=== PATIENT | male | born 1950 | race Caucasian/White ===

== ENCOUNTER 2017-12-20 10:54 | Inpatient (IN) | payer OTHER, MEDICAID ==
[2017-12-20] MEDS ORDERED: FAMOTIDINE 20 MG TAB PO ONE (10:57)
[2017-12-20] MEDS ORDERED: NS 1,000 ML IV ONE (10:57)
[2017-12-20] MEDS ORDERED: diphenhydrAMINE 25 MG CAP PO ONE (10:57)
[2017-12-20] MEDS ORDERED: ASPIRIN EC 325 MG TAB PO ONE (10:57)
[2017-12-20] MEDS ORDERED: DIAZEPAM 5 MG TAB PO ONE (10:57)
--- NOTE | 2017-12-20 11:20 | CPEKG ---
Heart Rate: 61 RR Interval: 984 P-R Interval: 172 QRSD Interval: 90 QT Interval: 404 QTC Interval: 407 P [place]: 43 QRS [place]: 57 T Wave [place]: 56 EKG Severity - ABNORMAL ECG - EKG Impression: SINUS RHYTHM EKG Impression: PROBABLE INFERIOR INFARCT, OLD EKG Impression: ANTEROLATERAL INFARCT, AGE INDETERMINATE Electronically Signed By: Basil So 20-Dec-2017 18:18:45
[2017-12-20 11:37] LABS: PLATELET COUNT 159 10^3/uL (150-400)
[2017-12-20] MEDS ORDERED: LIDOCAINE 1% 300 MG/30 ML SDV ONE (11:37)
[2017-12-20] MEDS ORDERED: fentaNYL 100 MCG/2 ML INJ ONE (11:37)
[2017-12-20] MEDS ORDERED: MIDAZOLAM 2 MG/2 ML VIAL ONE (11:38)
[2017-12-20] MEDS ORDERED: HEPARIN 10,000 UNIT/10 ML MDV (1,000 UNIT/ML) ONE (11:38)
[2017-12-20] MEDS ORDERED: IOPAMIDOL (ISOVUE-370) 150 ML BTL IV ONE (11:38)
[2017-12-20] MEDS ORDERED: VERAPAMIL 5 MG/2 ML VIAL ONE (11:38)
[2017-12-20 11:46] LABS: INR 1.05 (0.83-1.16); PROTIME(PATIENT) 13.9 SEC (12.0-15.0)
--- NOTE | 2017-12-20 12:00 | PDPROPOC ---
Sedation Plan of Care Sedation Plan of Care: vital signs stable, mental status noted, patient educated of risks, benefits, alternatives, patient can tolerate sedation ASA Classification: ASA 2 Planned drugs: fentanyl, midazolam Mallampati Score: Class 2 Mallampati Reference Image: Patient passed 3-3-2 rule?: Yes
--- NOTE | 2017-12-20 12:00 | PDHPUP ---
History & Physical Update H&P update statement: This history and physical update is based on an assessment of the patient which was completed after admission or registration (within 24 hours), but prior to the surgery/procedure. H&P update: H&P reviewed & patient examined, no change in patient's condition since H&P completed
[2017-12-20] MEDS ORDERED: ONDANSETRON 4 MG/2 ML VIAL ONE (12:21)
--- NOTE | 2017-12-20 13:01 | PDDXCAT ---
Diagnostic Cath Note - . Date: 12/20/17 Vp Training: Paolo Indication: CCC Class III and IV angina on medical treatment - Procedure Access: right wrist Procedure: left heart catheterization, coronary angiography, left ventriculogram - Materials Left Heart Cath size: 5F Left Heart Cath materials: other ([employer] and Pigtail) - Findings-Left Heart Catheterization LM: Mild irregularity. LAD: Fluoroscopy reveals the presence of a previously stented segment in the mid -LAD. Angiography demonstrates mild irregularities of the proximal LAD. The first diagonal branch has 50-60% ostial disease. The LAD is occluded within the stented segment. The apical portion of the LAD fills by [id number] collaterals. LCX: Fluoroscopy reveals the presence of a previously stented segment in the mid -circumflex. Angiography demonstrates proximal circumflex disease up to 60%. The stented segment is patent with 20-30% restenosis. The principal obtuse marginal branch has mild irregularities. RCA: Moderate to severe diffuse disease from the proximal RCA to the crux. At the junction of the mid and distal thirds of the RCA there is a focal stenosis greater than 90%. EDP: 24 mmHg LVEF: 30% Wall motion: Anterior and apical akinesis. Complications: None Estimated blood loss: <50ml Closure method: TR Band Assessment: 1) Ischemic cardiomyopathy with severely reduced left ventricular systolic function. 2) Multivessel CAD as described above. Plan: CT surgery consult for CABG.
[2017-12-20] MEDS ORDERED: ACETAMINOPHEN 325 MG TAB PO PRN (13:14)
[2017-12-20] MEDS ORDERED: ATROPINE SULFATE 1 MG/10 ML SYR IVP PRN (13:14)
[2017-12-20] MEDS ORDERED: NITROGLYCERIN 0.4 MG BTL SL PRN (13:14)
[2017-12-20] MEDS ORDERED: ONDANSETRON 4 MG/2 ML VIAL IVP PRN (13:14)
[2017-12-20] MEDS ORDERED: NS 1,000 ML IV SCH (13:15)
[2017-12-20] MEDS ORDERED: Ramelteon [Rozerem] 8 MG PO PRN (13:24)
[2017-12-20] MEDS: CARVEDILOL 6.25 MG TAB PO SCH (17:50)
[2017-12-20] MEDS: ATORVASTATIN CALCIUM 10 MG TAB PO SCH (20:52)
[2017-12-20] MEDS: ASPIRIN 325 MG TAB PO SCH (20:52)
[2017-12-20] MEDS: CHOLECALCIFEROL VIT D3 2,000 UNITS TAB/CAP PO SCH (20:52)
[2017-12-20] MEDS: LITHIUM CARBONATE 300 MG TAB PO SCH (20:58)
[2017-12-20] MEDS: MIRTAZAPINE 30 MG TAB PO SCH (20:58)
[2017-12-21] MEDS ORDERED: HEPARIN 10,000 UNIT/10 ML MDV (1,000 UNIT/ML) IVP ONE (07:54)
[2017-12-21] MEDS ORDERED: HEPARIN 10,000 UNIT/10 ML MDV (1,000 UNIT/ML) IVP PRN (07:54)
[2017-12-21] MEDS ORDERED: MANNITOL 25% 12.5 GM/50 ML VIAL IVP ONE (07:58)
[2017-12-21] MEDS ORDERED: VERAPAMIL 5 MG, NITROGLYCERIN 2.5 MG, HEPARIN 500 UNIT, SODIUM BICARBONATE 0.2 MEQ in L... MISC ONE (07:58)
[2017-12-21] MEDS ORDERED: SODIUM BICARBONATE 20 MEQ, LIDOCAINE 1% 10 ML in NORMOSOL-R 1,000 ML MISC ONE (07:58)
[2017-12-21] MEDS ORDERED: AMINOCAPROIC ACID 5 GM/20 ML VIAL IV ONE (07:58)
[2017-12-21] MEDS ORDERED: NOREPINEPHRINE BITARTRATE 16 MG in NS 250 ML IV ONE (07:58)
[2017-12-21] MEDS ORDERED: PHENYLEPHRINE HCL 50 MG in NS 250 ML IV ONE (07:58)
[2017-12-21] MEDS ORDERED: INSULIN REGULAR HUMAN 100 UNIT in NS 100 ML IV ONE (07:58)
[2017-12-21] MEDS ORDERED: MUPIROCIN 2% 22 GM OINT NS ONE (07:58)
[2017-12-21] MEDS ORDERED: CITRATE DEXTROSE SOLN 500 ML BAG MISC ONE (07:58)
[2017-12-21] MEDS ORDERED: ceFAZolin 2 GM/SWFI 2 GM/20 ML SYR IVP ONE (07:58)
[2017-12-21] MEDS ORDERED: niCARdipine/NACL 200 ML IV SCH (08:00)
[2017-12-21] MEDS ORDERED: HEPARIN/DEXTROSE 500 ML IV SCH (08:00)
[2017-12-21] MEDS ORDERED: NITROGLYCERIN/DEXTROSE 250 ML IV SCH (08:00)
--- NOTE | 2017-12-21 08:16 | GCON ---
[f rep st] CONSULTATION DATE OF CONSULTATION: 12/21/2017 REFERRING PHYSICIAN: Collin Boone MD IMPRESSION: 1. Unstable angina pectoris with severe 3-vessel disease and severe left ventricular dysfunction. 2. Severe chronic obstructive pulmonary disease with ongoing cigarette abuse. 3. Ischemic cardiomyopathy. 4. Status post cholecystectomy. 5. Status post multiple stents. RECOMMENDATIONS: This patient should undergo urgent coronary artery revascularization. He is curren tly having angina. We will start nitroglycerin and prepare for surgery this afternoon. Risks and co mplications were reviewed at length with the patient. He has no family. CHIEF COMPLAINT: A gentleman who presents with unstable angina pectoris, underwent myocardial perfus ion and subsequent diagnostic left heart catheterization which showed severe three-vessel disease and severe LV dysfunction. Please see cath report. MEDICAL HISTORY: As stated. PREVIOUS SURGERIES: Include cataract surgery, cholecystectomy, and stents. MEDICATIONS: Aspirin, carvedilol, lithium, Lumigan, mirtazapine, nitroglycerin sublingual, prednison e ophthalmic, simvastatin, and vitamin D. ALLERGIES: Codeine. FAMILY HISTORY: Noncontributory. SOCIAL HISTORY: Patient has a heavy smoking history, currently only smoking a half pack of cigarette s per day. He is unmarried, has no family. REVIEW OF SYSTEMS: At the present time is complaining of angina at rest. We will begin nitroglyceri n and heparin, and plan for surgery later this morning. Carotid ultrasounds are without obstructive disease. PHYSICAL EXAMINATION: GENERAL: A slender, cachectic, poorly kept gentleman in mild distress. HEENT : Normocephalic. Teeth with poor dentition. He does wear glasses. NECK: Without bruits. HEART: Rate is regular without murmur. LUNGS: Lungs are diminished. He has increased AP diameter and inc reased expiration. ABDOMEN: Scaphoid, nontender. Bowel sounds are active. RECTAL/GENITAL: Exam de ferred. EXTREMITIES: Femoral pulses were 1+. No edema. No varicosities. /[id number]/MODL
[2017-12-21] MEDS: CARVEDILOL 6.25 MG TAB PO SCH (08:50)
[2017-12-21 09:05] LABS: PLATELET COUNT 139 10^3/uL (150-400)
--- NOTE | 2017-12-21 09:15 | PDCARPN ---
Cardiology Progress Note Chief Complaint: Chest pain Assessment/Plan: Assessment: 1. Severe 3 vessel CAD 2. Unstable angina 3. Ischemic Cardiomyopathy with LVEF 30% Plan: -Pt has been seen by Dr. Devlin and plan for CABG today 12/21/17 09:12 Subjective: Mr. Delvalle is a pleasant 67 year old gentleman with severe 3 vessel CAD on [facility] yesterday with ischemic CM with LVEF 30%. He has had episodes of unstable angina this am. Relieved with morphine. Hemodynamically stable. Currently pain free. He has been seen by Dr. Devlin and plan for CABG this afternoon. Reviewed/Discussed With: multidisciplinary team Objective: Vital Signs (8 Hrs) Temp Pulse Resp BP Pulse Ox 12/21/17 08:00 36.7 C 63 16 132/79 H 93 12/21/17 03:38 36.6 C 70 13 103/62 92 Intake/Output (24 Hrs) 12/20/17 12/21/17 12/22/17 05:59 05:59 05:59 Intake Total 2250 Output Total 400 Balance 1850 Intake: Oral (ml) 1250 IV Infused (ml) 1000 Ns 1,000 ml @ 100 mls/hr 1000 IV CONT CARMELITA Rx#: [id number] Output: Urine (ml) 400 Urinal 400 Other: Weight 68.7 kg Number of Voids Toilet 3 Result Diagrams: 12/20/17 11:30 12/20/17 11:30 ICD10 Worksheet Patient Problems: Problems Problem Status Onset CAD (coronary artery disease) Acute CAD (coronary artery disease) of artery bypass graft Acute - ICD10 Problem Qualifiers (1) CAD (coronary artery disease) of artery bypass graft (2) CAD (coronary artery disease)
--- NOTE | 2017-12-21 09:54 | PDMN ---
Medical Necessity Medical necessity: C/M review: Patient meets INPT criteria under MCG M-40 Angina: Acute and persistent 3 vessel CAD, unstable angina, ischemic cardiomyopathy with LVEF 30% requiring 12/20/2017 cardiac catheterization - [facility] showing severe triple vessel CAD with ischemic cardiomyopathy with requiring LVEF 30% requiring planned urgent surgery - CABG 12/21/2017, ongoing IV Heparin infusion, IV Morphine, cardiac monitoring. MD anticipates > 2 MN LOS for ongoing med nec for eval and TX of above.
[2017-12-21 10:50] LABS: INR 1.09 (0.83-1.16); PROTIME(PATIENT) 14.3 SEC (12.0-15.0)
[2017-12-21] MEDS ORDERED: CHLORHEXIDINE GLUC HIBICLENS 118 ML BTL TP ONE (11:45)
[2017-12-21] MEDS ORDERED: NA BICARBONATE 50 MEQ/50 ML VIAL ONE (14:54)
[2017-12-21] MEDS ORDERED: MILRINONE/DEXTROSE/100 ML BAG IV ONE (14:54)
[2017-12-21] MEDS ORDERED: PROTAMINE SULFATE 50 MG/5 ML VIAL IVP ONE (14:54)
[2017-12-21] MEDS ORDERED: CALCIUM CHLORIDE 1 GM/10 ML INJ ONE ×3 (14:54→21:06)
[2017-12-21] MEDS ORDERED: ceFAZolin 1 GM VIAL ONE ×2 (14:55→16:22)
[2017-12-21] MEDS ORDERED: niCARdipine/NACL/200 ML BAG IV ONE (14:55)
[2017-12-21] MEDS ORDERED: HEPARIN 10,000 UNIT/10 ML MDV (1,000 UNIT/ML) ONE ×2 (14:55→14:56)
[2017-12-21] MEDS ORDERED: DOPamine/DEXTROSE/250 ML BAG IV ONE (14:55)
[2017-12-21] MEDS ORDERED: ADENOSINE 6 MG/2 ML VIAL ONE (14:55)
[2017-12-21] MEDS ORDERED: AMIODARONE HCL 150 MG/3 ML VIAL ONE ×2 (14:55→14:56)
[2017-12-21] MEDS ORDERED: ALBUMIN 5% 250 ML BOTTLE IV ONE ×2 (14:56→19:22)
[2017-12-21] MEDS ORDERED: LIDOCAINE 2% 100 MG/5 ML SYR ONE ×2 (14:56→15:21)
[2017-12-21] MEDS ORDERED: methylPREDNISolone SOD SUCC 1 GM/8 ML VIAL ONE (14:56)
[2017-12-21] MEDS ORDERED: MAGNESIUM SULFATE 1 GM/2 ML VIAL ONE (14:56)
[2017-12-21] MEDS ORDERED: CITRATE DEXTROSE SOLN 500 ML BAG ONE (14:56)
[2017-12-21] MEDS ORDERED: VERAPAMIL 5 MG/2 ML VIAL ONE (14:57)
[2017-12-21] MEDS ORDERED: PAPAVERINE HCL 60 MG/2 ML SDV ONE (14:57)
[2017-12-21] MEDS ORDERED: MINERAL OIL 10 ML VIAL ONE (15:10)
[2017-12-21] MEDS ORDERED: MIDAZOLAM 2 MG/2 ML VIAL ONE ×2 (15:16→15:17)
[2017-12-21] MEDS ORDERED: REMIFENTANIL HCL 1 MG VIAL ONE (15:16)
[2017-12-21] MEDS ORDERED: fentaNYL 250 MCG/5 ML INJ ONE (15:17)
[2017-12-21] MEDS ORDERED: PROPOFOL/EMULSION 500 MG/50 ML BOTTLE IV ONE (15:19)
[2017-12-21] MEDS ORDERED: ROCURONIUM 100 MG/10 ML VIAL ONE (15:20)
[2017-12-21] MEDS ORDERED: DEXAMETHASONE 4 MG/ML VIAL ONE (15:20)
[2017-12-21] MEDS ORDERED: ONDANSETRON 4 MG/2 ML VIAL ONE (15:21)
[2017-12-21] MEDS ORDERED: PHENYLEPHRINE HCL 100 MCG/ML SYR ONE (15:21)
--- NOTE | 2017-12-21 15:41 | ASMTCMCOM ---
CM Note CM Note Notes: Pt admitted with unstable angina. Hx CAD. CABG planned for today. Therapies will be pending. No familiy/support system listed as yet. CM will follow for any d/c needs. Date Signed: 12/21/2017 03:40 PM Electronically Signed By:TOM Grissom
--- NOTE | 2017-12-21 16:40 | PDANEPAE ---
ANE History of Present Illness severe 3v CAD s/f CABG x3, SANDOVAL, SVG ANE Past Medical History - Cardiovascular History Hx Hypertension: Yes Hx Chest Pain: Yes Hx Coronary Artery / Peripheral Vascular Disease: Yes - Pulmonary History Hx COPD: Yes Hx Sleep Apnea: No Sleep Apnea Screening Result - Last Documented: Negative - Endocrine History Hx Diabetes: No - Neurological & Psychiatric Hx Hx Neurological and Psychiatric Disorders: Yes Neurological / Psychiatric History Comment: BiPolar - Other Health History Other Health History: glaucoma ANE Review of Systems Review of Systems: - Exercise capacity Exercise capacity: >=4 METS ANE Patient History - Allergies Allergies/Adverse Reactions: codeine Allergy (Verified 12/20/17 11:38) Itching - Home Medications Home Medications: Aspirin [Aspirin 325 mg (*)] 325 mg PO BID 12/20/17 [Last Taken 12/19/17 21:00] Bimatoprost 0.01% [Lumigan 0.01% (*)] 1 drops RTEYE DAILY 12/20/17 [Last Taken 12/20/17] Brimonidine 0.1% [ALPHAGAN P 0.1% (*)] 1 drops RTEYE BID 12/20/17 [Last Taken ] Carvedilol [Coreg (*)] 12.5 mg PO BIDMEAL 12/20/17 [Last Taken 12/20/17] Cholecalciferol Vit D3 [Vitamin D3 2000 units tab (OTC)] 2,000 units PO BID 12/08 [Last Taken 12/20/17] Ferrous Sulfate [Ferrous Sulf 325 MG (*)] 325 mg PO DAILY 12/20/17 [Last Taken Unknown] Angie Carbonate [Angie Carbonate Tab 300 mg (*)] 300 mg PO HS 12/20/17 [ Last Taken 12/19/17] Mirtazapine [Remeron] 30 mg PO HS 12/20/17 [Last Taken 12/19/17] Nitroglycerin [Nitrostat 0.4 mg (*)] 0.4 mg PO DAILY PRN 12/20/17 [Last Taken Unknown] Ramelteon [Rozerem] 8 mg PO HS PRN 12/20/17 [Last Taken Unknown] Simvastatin [Zocor] 20 mg PO HS 12/20/17 [Last Taken 12/19/17] prednisoLONE ACET 1% [Pred Forte 1% (*)] 1 drops RTEYE DAILY 12/20/17 [Last Taken 12/20/17] - NPO status NPO Status: no food or drink >8 hours NPO Since - Liquids (Date): 12/21/17 NPO Since - Liquids (Time): 00:00 NPO Since - Solids (Date): 12/21/17 NPO Since - Solids (Time): 00:00 - Anes Hx Anes Hx: no prior problems - Smoking Hx Smoking Status: Current every day smoker Marijuana use: Yes - Alcohol Use Alcohol Use: Rarely - Family Anes Hx Family Anes Hx: none ANE Labs/Vital Signs - Labs Result Diagrams: 12/21/17 08:40 12/20/17 11:30 - Vital Signs Blood Pressure: 111/66 Heart Rate: 66 Respiratory Rate: 16 O2 Sat (%): 92 Height: 182.9 cm Weight: 68.7 kg ANE Physical Exam - Airway Neck exam: FROM Mouth exam: poor dentition (no teeth) - Pulmonary Pulmonary: reduced air movement, expiratory wheeze - Cardiovascular Cardiovascular: regular rate and rhythym ANE Anesthesia Plan Anesthesia Plan: general endotracheal anesthesia Lines/Monitors: arterial line, central line, FAY Urgent/Emergent Case: Rickey romero completed preop but documented later for safe timely pt care
[2017-12-21] MEDS ORDERED: DEXMEDETOMIDINE HCL 400 MCG in NS 100 ML IV SCH (19:00)
[2017-12-21] MEDS ORDERED: MAGNESIUM SULF 2 GM/WATER 50 ML BAG IV ONE (19:22)
[2017-12-21] MEDS ORDERED: D50W 25 GM/50 ML SYR IVP PRN (19:34)
[2017-12-21] MEDS ORDERED: MAGNESIUM HYDROXIDE 30 ML UDCUP PO PRN (19:34)
[2017-12-21] MEDS ORDERED: BISACODYL 10 MG SUPP PR PRN (19:34)
[2017-12-21] MEDS ORDERED: POTASSIUM Cl (KCl) 50 ML IV PRN (19:34)
[2017-12-21] MEDS ORDERED: SODIUM CL NASAL 45 ML BTL EACHNARE PRN (19:34)
[2017-12-21] MEDS ORDERED: LACTULOSE 20 GM/30 ML UDCUP PO PRN (19:34)
[2017-12-21] MEDS ORDERED: MAGNESIUM SULF 2 GM/WATER 50 ML IV ONE (19:34)
[2017-12-21] MEDS ORDERED: METOCLOPRAMIDE 10 MG/2 ML VIAL IVP PRN (19:34)
[2017-12-21] MEDS ORDERED: POLYETHYLENE GLYCOL 3350 17 GM PKT PO PRN (19:34)
[2017-12-21] MEDS ORDERED: PANTOPRAZOLE SODIUM 40 MG VIAL IVP ONE (19:34)
[2017-12-21] MEDS ORDERED: ACETAMINOPHEN 325 MG TAB PO PRN (19:34)
[2017-12-21] MEDS ORDERED: ONDANSETRON DISINTEGRATING 4 MG TAB PO PRN (19:34)
[2017-12-21] MEDS ORDERED: ACETAMINOPHEN 650 MG SUPP PR PRN (19:34)
[2017-12-21] MEDS ORDERED: CEPACOL LOZENGE PO PRN (19:34)
[2017-12-21] MEDS ORDERED: MEPERIDINE 25 MG/ML SYR IVP PRN (19:34)
[2017-12-21] MEDS ORDERED: NS 1,000 ML IV SCH (19:45)
[2017-12-21] MEDS ORDERED: INSULIN REGULAR HUMAN 100 UNIT in NS 100 ML IV SCH (20:00)
[2017-12-21] MEDS: fentaNYL 100 MCG/2 ML INJ IVP PRN ×3 (20:20→21:52)
[2017-12-21] MEDS: ALBUMIN 5% 250 ML IV PRN ×2 (20:24→23:05)
[2017-12-21] MEDS ORDERED: ceFAZolin 2 GM/DEXTROSE 100 ML IV SCH (22:00)
[2017-12-21] MEDS: prednisoLONE ACET 1% 5 ML OPHT.BTL RTEYE SCH (22:32)
[2017-12-21] MEDS: CHOLECALCIFEROL VIT D3 2,000 UNITS TAB/CAP PO SCH (22:32)
[2017-12-21] MEDS: FERROUS SULFATE 325 MG TAB PO SCH (22:32)
[2017-12-21] MEDS: BIMATOPROST 0.01% 2.5 ML OPHT.BTL RTEYE SCH (22:32)
[2017-12-21] MEDS: SENNOSIDES/DOCUSATE SODIUM TAB PO SCH (22:33)
[2017-12-21] MEDS: ASPIRIN 325 MG TAB PO SCH (23:31)
[2017-12-21] MEDS: MUPIROCIN 2% 22 GM OINT NS SCH (23:31)
[2017-12-21] MEDS: ceFAZolin 2 GM/SWFI 2 GM/20 ML SYR IVP SCH (23:41)
--- NOTE | 2017-12-21 23:59 | GOP ---
[f rep st] OPERATIVE REPORT DATE OF OPERATION: 12/21/2017 SURGEON: Collin Devlin DO BANDING MACHINE OPERATOR: Adrian Mcfarlane PA-C. PREOPERATIVE DIAGNOSIS: Unstable angina pectoris with ischemic cardiomyopathy. POSTOPERATIVE DIAGNOSIS: Unstable angina pectoris with ischemic cardiomyopathy with evidence of left ventricular aneurysm. PROCEDURE PERFORMED: 1. Urgent coronary artery bypass grafting x4 with left internal mammary artery to the distal left an terior descending, saphenous vein graft to the 1st diagonal, saphenous vein to the posterior lateral circumflex, and saphenous vein graft to the posterior descending artery. 2. Left ventricular aneurysmectomy. 3. Ligate left atrial appendage with AtriClip. 4. Endoscopic vein harvest by KAVIN Murillo, who first assisted throughout the procedure. FINDINGS: Patient presented with unstable angina pectoris, underwent diagnostic left heart catheteri zation, was noted to have severe 3-vessel disease. Please see cath report. Ejection fraction was 30 %. He was consented for surgery. He began having chest pain in hospital. He was then kept n.p.o. a nd taken into OR 6 hours after drinking water. He was intubated. Monitoring lines were placed. He was prepped and draped in sterile classical manner. Sternotomy was performed. The vein was harveste d endoscopically from the left leg. It was adequate vein at 3.5 mm. He was heparinized. The left i nternal mammary artery was harvested. He was then cannulated in the standard fashion. The aorta was without thickening or calcification. LV function appeared to be about 30%. On echo he did have a l arge LV aneurysm with transmural scar at the apex and anterior wall which collapsed with cardiac arre st and suction on the ascending aortic vent. We then basically plicated the aneurysm since there was no clot on echo and I felt that this would be adequate. We then used pieces of felt and approximated it with approximately a 4 cm x 8 cm area олег roximating it with interrupted #2 horizontal mattress Prolene sutures followed by a continuous runnin g [id number] suture reinforced with felt. We reduced the LV chamber by about 10% or 15% taking it to the edge in the margin of the LV aneurysm. We then grafted the posterior lateral circumflex whic h was a diffusely diseased 3 mm vessel. Excellent vein quality was utilized. It was then grafted to the ascending aorta. We then grafted the diagonal which was a 2 mm vessel again bringing it off the proximal ascending aorta. I then grafted a very poor quality LAD in the distal 3rd where it measure d 1.5 mm. It had multiple skip lesions throughout and was poorly visualized at cath. It did probe t o the apex. This was grafted with an excellent quality mammary without difficulty. I then grafted t he PDA, which was a 2.2 mm vessel with good quality vein brought off the ascending aorta as well. At riClip was placed at the base of the left atrial appendage. Cross-clamp was removed with suction of the ascending aortic vent. The apex was aspirated for air. He was in Trendelenburg. He was then we aned from bypass utilizing dopamine. Echo revealed improved LV function approximately 45% with anter ior wall hypokinesis. The heparin was reversed with protamine. The cannula was removed and oversewn . 2 ventricular pacing wires, 2 pleural, 1 mediastinal drain were placed. The thymic fat and perica rdium were closed. Chest was closed in standard fashion. Patient was returned to ICU in stable cond ition. DESCRIPTION OF PROCEDURE: /[id number]/MODL
[2017-12-22] MEDS: fentaNYL 100 MCG/2 ML INJ IVP PRN ×5 (01:10→23:11)
[2017-12-22 05:35] LABS: PLATELET COUNT 48 10^3/uL (150-400)
[2017-12-22] MEDS: HEPARIN 5,000 UNIT/0.5 ML SYR SC SCH ×2 (05:39→07:10)
[2017-12-22] MEDS: CLOPIDOGREL BISULFATE 75 MG TAB PO SCH (06:04)
--- NOTE | 2017-12-22 08:13 | SOAPPROG ---
SOAP Progress Note Assessment/Plan: POD #1: Urgent CABGX4 (SANDOVAL-LAD, SVG-D1, SVG-Cx, SVG-PDA), LV aneurysmectomy, AtriClip JOSE M, EVH L leg Unstable angina/severe 3VD/LV aneurysm with ischemic cardiomyopathy (EF 30%) s/ p urgent CABGx4/LV aneurysmectomy - Dopamine weaned off this morning with adequate BP - BB/ASA/statin when appropriate - DAPT for 60 days for additional vein thromboprophylaxis - CT to remain on suction for possible air leak, AL to be removed, FC to stay 24 more hours d/t difficult insertion - PT/OT - ICU status for another day Acute blood loss anemia - Stable without the need for BP transfusions Thrombocytopenia - Secondary to CPB - Hold ASA/Plavix for platelets <50, hold heparin SQ for platelets <100 Psych issues (depression/bipolar) - Continue pre-op medications Corneal issues, right eye - Continue eye drops Tobacco abuse - Nicotine patch placed Subjective: Has pain relieved with pain medications. Denies SOB. Objective: Vital Signs Temp Pulse Resp BP Pulse Ox 36.5 C 70 12 112/65 96 12/22/17 07:00 12/22/17 07:00 12/22/17 07:00 12/22/17 07:00 12/22/17 07:00 Laboratory Results 12/22/17 04:50 12/22/17 04:50 12/21/17 12/22/17 12/23/17 05:59 05:59 05:59 Intake Total 2250 2027 Output Total 400 3040 120 Balance 1850 -1013 -120 PT 14.3 SEC (12.0-15.0) 12/21/17 08:40 INR 1.09 (0.83-1.16) 12/21/17 08:40 Physical Exam - Physical Exam General Appearance: WD/WN, alert, no apparent distress EENT: No scleral icterus (R), No scleral icterus (L) Neck: normal inspection Respiratory: No respiratory distress Cardiac/Chest: regular rate, rhythm Abdomen: non-tender, soft, No distended Skin: normal color, warm/dry Extremities: No pedal edema Neuro/Psych: no motor/sensory deficits, alert, normal mood/affect, oriented x 3 ICD10 Worksheet Patient Problems: Problems Problem Status Onset CAD (coronary artery disease) Acute S/P aneurysm repair Acute S/P coronary artery bypass graft x 4 Acute Ventricular aneurysm Acute
[2017-12-22] MEDS: MUPIROCIN 2% 22 GM OINT NS SCH ×2 (08:49→21:09)
[2017-12-22] MEDS: prednisoLONE ACET 1% 5 ML OPHT.BTL RTEYE SCH (08:49)
[2017-12-22] MEDS: ceFAZolin 2 GM/SWFI 2 GM/20 ML SYR IVP SCH ×3 (08:49→23:11)
[2017-12-22] MEDS: BIMATOPROST 0.01% 2.5 ML OPHT.BTL RTEYE SCH (08:50)
[2017-12-22] MEDS: NICOTINE 14 MG/24 HR PATCH TD SCH (09:25)
--- NOTE | 2017-12-22 09:50 | POSTANESTH ---
Post Anesthetic Evaluation Cardiovascular Status: Normal, Stable, Tx Hyper/Hypo-tension Respiratory Status: Tx Decrease in SpO2 Level of Consciousness/Mental Status: Can Participate in Eval Pain Control: Adequate, Prn Tx Ordered Nausea/Vomiting Control: Adequate, Prn Tx Ordered Complications Possibly Related to Anesthesia: None Noted
--- NOTE | 2017-12-22 09:50 | POSTANESTH ---
Post Anesthetic Evaluation Cardiovascular Status: Normal, Stable Respiratory Status: Tx Decrease in SpO2 Level of Consciousness/Mental Status: Can Participate in Eval Pain Control: Adequate, Prn Tx Ordered Nausea/Vomiting Control: Adequate, Prn Tx Ordered Complications Possibly Related to Anesthesia: None Noted
[2017-12-22] MEDS ORDERED: LITHIUM CARBONATE 300 MG TAB PO ONE (10:42)
[2017-12-22] MEDS: PANTOPRAZOLE SODIUM 40 MG TAB PO SCH (10:58)
[2017-12-22] MEDS: SENNOSIDES/DOCUSATE SODIUM TAB PO SCH ×2 (10:58→19:51)
--- NOTE | 2017-12-22 14:44 | CPEKG ---
Heart Rate: 76 RR Interval: 789 P-R Interval: 184 QRSD Interval: 90 QT Interval: 376 QTC Interval: 423 P [place]: 148 QRS [place]: 143 T Wave [place]: 154 EKG Severity - ABNORMAL ECG - EKG Impression: SINUS OR ECTOPIC ATRIAL RHYTHM EKG Impression: LOW VOLTAGE EKG Impression: QUERY ANTERIOR INFARCTION EKG Impression: MODERATE ARTIFACT Electronically Signed By: Basil So 23-Dec-2017 08:19:56
[2017-12-22] MEDS: HYDROCODONE/APAP 5/325 TAB PO PRN ×2 (14:46→19:50)
--- NOTE | 2017-12-22 15:01 | GHP ---
[f rep st] HISTORY AND PHYSICAL DATE OF ADMISSION: 12/21/2017 REFERRING PHYSICIAN: Collin Devlin DO PULMONARY/CRITICAL CARE CONSULTATION REASON FOR REFERRAL: Evaluation and management of anemia and bipolar/depression. HISTORY: The patient is a 67-year-old male with a history of ischemic cardiomyopathy from an PR over 10 years ago. He was followed by Dr. Boone. He was seen for routine followup and found to have unstable angina. A left heart catheterization showed severe 3 vessel disease and severe LV dysfuncti on, with ejection fraction of approximately 30%. He was taken for urgent CABG x4 yesterday, he also had a left ventricular aneurysmectomy and an atrial clip of his atrial appendage. He was extubated l ast night. Today he is complaining of severe chest pain and has not complied with efforts to protect his sternum, stating that he "can't help but" when he pushes off with his arms. He states that it h urts to take deep breaths. Denies other symptoms. PAST MEDICAL HISTORY: 1. Bipolar/depression. 2. Ischemic cardiomyopathy. 3. Hypercholesterolemia. MEDICATIONS: At the time of admission include iron sulfate, eye drops, Remeron, Zocor, carvedilol, a spirin, lithium carbonate, and ramelteon. ALLERGIES: Codeine. SOCIAL HISTORY: The patient has a long history of heavy smoking, currently smoking about 5 cigarette s a day. FAMILY HISTORY: Unremarkable. REVIEW OF SYSTEMS: A 10-point review of systems is unremarkable. PHYSICAL EXAMINATION: GENERAL: The patient is awake and alert. He is complaining of chest pain. V ITAL SIGNS: His blood pressure is 120/68, with a heart rate of 74. He is afebrile. Oxygen saturati ons are 94% on 2 L. HEENT: Normocephalic and atraumatic. No icterus. NECK: No adenopathy, trache a is midline. CHEST: Clear to auscultation. CARDIAC: Regular rate and rhythm, without murmur. Hi s sternal site is dry and intact. ABDOMEN: Soft, nontender. Bowel sounds are present. EXTREMITIES : No clubbing, cyanosis, or edema. NEURO: The patient is awake, alert. There are no focal deficit s. LABORATORY: A chemistry group is remarkable for a blood glucose of 147, up from low 100s. A hemoglo bin A1c is pending. Hemoglobin is 12.2, down from 14.8 preoperatively. Arterial blood gas this morn ing showed a pH of 7.35, with a pO2 of 64, a CO2 of 41 and a bicarbonate of 23, on 40% oxygen. A drea st x-ray shows chest tubes in appropriate position, mild elevation of the left hemidiaphragm. Images reviewed by me. ASSESSMENT: 1. Status post urgent coronary artery bypass graft due to unstable angina with ischemic cardiomyopat hy, estimated ejection of 30%. The patient also had aneurysmectomy. Hemodynamically, he has recover ed well, however, he is having significant pain and noncompliance with sternal precautions, which put him at risk for his sternal wires becoming dislodged. 2. Hyperglycemia. This is mild. 3. Bipolar disorder. The patient is on lithium for this. His underlying mental health issues are p robably made worse by his postoperative state and pain. 4. Anemia. This is mild and not unexpected in patient's status post coronary artery bypass grafting . 5. Tobacco abuse. The patient smokes about 5 cigarettes daily. RECOMMENDATIONS: 1. Insulin drip has been turned off. Blood sugar levels will be followed and sliding scale insulin will be used if necessary, but I do not anticipate significant insulin needs. 2. Follow hemoglobin. 3. The patient will continue his regular lithium, as well as mirtazapine. 4. Nicotine patch will be used for nicotine withdrawal. /[id number]/MODL
[2017-12-22] MEDS: LITHIUM CARBONATE 300 MG TAB PO SCH (21:18)
[2017-12-22] MEDS: MIRTAZAPINE 30 MG TAB PO SCH (21:18)
[2017-12-22] MEDS: ONDANSETRON 4 MG/2 ML VIAL IVP PRN (21:19)
[2017-12-23] MEDS: fentaNYL 100 MCG/2 ML INJ IVP PRN (00:35)
[2017-12-23 05:56] LABS: PLATELET COUNT 59 10^3/uL (150-400)
[2017-12-23] MEDS: ASPIRIN 81 MG CHEWABLE TAB PO SCH ×2 (06:05→09:04)
--- NOTE | 2017-12-23 07:00 | SOAPPROG ---
SOAP Progress Note Assessment/Plan: POD #2: Urgent CABGX4 (SANDOVAL-LAD, SVG-D1, SVG-Cx, SVG-PDA), LV aneurysmectomy, AtriClip JOSE M, EVH L leg Unstable angina/severe 3VD/LV aneurysm with ischemic cardiomyopathy (EF 30%) s/ p urgent CABGx4/LV aneurysmectomy - BB/ASA/statin when appropriate - DAPT for 60 days for additional vein thromboprophylaxis - CT to wall suction, FC to be removed - PT/OT - PCU status Acute blood loss anemia - Stable without the need for BP transfusions Thrombocytopenia - Secondary to CPB, trending higher - Hold ASA/Plavix for platelets <50, hold heparin SQ for platelets <100 Psych issues (depression/bipolar) - Continue medications Corneal issues, right eye - Continue eye drops Tobacco abuse - Nicotine patch placed Dysphagia - Meds with puree - Repeat swallow today Subjective: Tired, denies pain/SOB. Objective: Vital Signs Temp Pulse Resp BP Pulse Ox 36.8 C 85 13 121/68 H 95 12/23/17 04:00 12/23/17 06:00 12/23/17 06:00 12/23/17 06:00 12/23/17 06:00 Laboratory Results 12/23/17 05:35 12/23/17 05:35 12/22/17 12/23/17 12/24/17 05:59 05:59 05:59 Intake Total 2026 2405 Output Total 3040 1700 Balance -1013 705 PT 14.3 SEC (12.0-15.0) 12/21/17 08:40 INR 1.09 (0.83-1.16) 12/21/17 08:40 Physical Exam - Physical Exam General Appearance: WD/WN, alert, no apparent distress EENT: No scleral icterus (R), No scleral icterus (L) Neck: normal inspection Respiratory: No respiratory distress Cardiac/Chest: regular rate, rhythm Abdomen: non-tender, soft, No distended Skin: normal color, warm/dry Extremities: No pedal edema Neuro/Psych: no motor/sensory deficits, cognition abnormalities ICD10 Worksheet Patient Problems: Problems Problem Status Onset CAD (coronary artery disease) Acute S/P aneurysm repair Acute S/P coronary artery bypass graft x 4 Acute Ventricular aneurysm Acute
[2017-12-23] MEDS: ONDANSETRON 4 MG/2 ML VIAL IVP PRN (07:33)
[2017-12-23] MEDS: ceFAZolin 2 GM/SWFI 2 GM/20 ML SYR IVP SCH (07:33)
[2017-12-23] MEDS: NICOTINE 14 MG/24 HR PATCH TD SCH (09:03)
[2017-12-23] MEDS: SENNOSIDES/DOCUSATE SODIUM TAB PO SCH ×2 (09:03→22:03)
[2017-12-23] MEDS: PANTOPRAZOLE SODIUM 40 MG TAB PO SCH (09:04)
[2017-12-23] MEDS: BIMATOPROST 0.01% 2.5 ML OPHT.BTL RTEYE SCH (09:04)
[2017-12-23] MEDS: CLOPIDOGREL BISULFATE 75 MG TAB PO SCH (09:04)
[2017-12-23] MEDS: prednisoLONE ACET 1% 5 ML OPHT.BTL RTEYE SCH (09:05)
[2017-12-23] MEDS: MUPIROCIN 2% 22 GM OINT NS SCH (09:05)
[2017-12-23] MEDS: HYDROCODONE/APAP 5/325 TAB PO PRN ×4 (10:21→22:03)
[2017-12-23] MEDS: CHOLECALCIFEROL VIT D3 2,000 UNITS TAB/CAP PO SCH ×2 (10:22→22:03)
[2017-12-23] MEDS: FERROUS SULFATE 325 MG TAB PO SCH (10:22)
[2017-12-23] MEDS: CARVEDILOL 3.125 MG TAB PO SCH ×2 (11:59→18:23)
--- NOTE | 2017-12-23 17:31 | PDINTPN ---
Oil Developer Progress Note Assessment/Plan: Assessment: Status post coronary artery bypass grafting secondary to unstable angina. Doing well postoperatively. Still with some sternal/chest surgical pain. Overall this seems better and he is more compliant with sternal precautions. Hemodynamics stable. Ischemic cardiomyopathy. Ejection fraction preop was 30%. Status post aneurysmectomy. Bipolar disorder. Patient is much more stable today from a psychiatric standpoint. Back on lithium and mirtazipine. Anemia. Secondary to surgery/acute blood loss. Thrombocytopenia also present. Hit serology pending. History of COPD, ongoing tobacco abuse. Pulmonary status is stable. On a nicotine patch. Prophylaxis: On subcu heparin and pantoprazole. Metabolic: No issues identified. Plan: Continue care in the intensive care unit/SDU. Continue pain control. Continue medications for bipolar depression. Follow laboratory and CXR. If HIT panel negative then start subcu heparin or enoxaparin. Recheck ejection fraction at some point by cardiac echo. Per Cardiology/cardiovascular surgery. 25 min of critical care time spent directly with the patient. Discussed with nursing, the ICU multi disciplinary team Subjective: Up in chair. Wants to get back to bed. Complains of chest pain anteriorly, some shortness of breath. Objective: Vital Signs Temp Pulse Resp BP Pulse Ox 36.8 C 94 18 126/69 H 97 12/23/17 04:00 12/23/17 14:00 12/23/17 12:00 12/23/17 14:00 12/23/17 14:00 Laboratory Results 12/23/17 05:35 12/23/17 05:35 12/22/17 12/23/17 12/24/17 05:59 05:59 05:59 Intake Total 2026 2405 Output Total 3040 1700 1225 Balance -1013 705 -1225 PT 14.3 SEC (12.0-15.0) 12/21/17 08:40 INR 1.09 (0.83-1.16) 12/21/17 08:40 CXR: Right apical pneumothorax, slightly larger. Congestive heart failure improving. Atelectatic changes at bases. Lines and tubes in good position. Physical Exam - Physical Exam General Appearance: no apparent distress, thin, other (Up in chair) EENT: PERRL/EOMI, other (Nasal cannula at 2 L: Sats 97%) Neck: normal inspection (No JVD noted) Respiratory: lungs clear (Anteriorly), decreased breath sounds (At bases), rales (Few bibasilar rales present), pleural rub (Pleural/pericardial rub at left lateral base) Cardiac/Chest: regular rate, rhythm Abdomen: normal bowel sounds, non-tender, soft Male Genitalia: other (Brady catheter out, good urine output.) Skin: warm/dry, pallor Extremities: No pedal edema Neuro/Psych: no motor/sensory deficits, cognition abnormalities (Improved, responsive, cooperative.) ICD10 Worksheet Patient Problems: Problems Problem Status Onset S/P aneurysm repair Acute Ventricular aneurysm Acute S/P coronary artery bypass graft x 4 Acute CAD (coronary artery disease) Acute
[2017-12-23] MEDS ORDERED: NS 1,000 ML IV SCH (18:30)
[2017-12-23] MEDS: LITHIUM CARBONATE 300 MG TAB PO SCH (22:02)
[2017-12-23] MEDS: MIRTAZAPINE 30 MG TAB PO SCH (22:03)
[2017-12-23] MEDS ORDERED: CARVEDILOL 3.125 MG TAB PO ONE (22:36)
[2017-12-24] MEDS: HYDROCODONE/APAP 5/325 TAB PO PRN ×4 (02:00→21:01)
--- NOTE | 2017-12-24 07:18 | SOAPPROG ---
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 Precautionary HIT pending. - Hold ASA/Plavix for platelets <50, hold heparin SQ for platelets <100 Psych issues (depression/bipolar) - [place] and mirtazipine resumed. Corneal issues, right eye - Continue eye drops COPD/Tobacco abuse - Nicotine patch placed Dysphagia - diet per IMPORT CUSTOMS CLEARING AGENT Plan: Convert blakes to bulb suction if no air leak with ambulation. Replete magnesium. Cont DAPT. Cont coreg 6.25 mg BID. Transfer to PCU. 12/24/17 07:18 Subjective: Tired. Hurts to breathe deeply or cough, ok at rest. Not much appetite. Voiding better. Objective: Vital Signs Temp Pulse Resp BP Pulse Ox 36.5 C 100 17 119/75 93 12/24/17 04:00 12/24/17 04:00 12/24/17 04:00 12/24/17 04:00 12/24/17 04:00 Laboratory Results 12/24/17 05:10 12/24/17 05:10 12/23/17 12/24/17 12/25/17 05:59 05:59 05:59 Intake Total 2405 45 Output Total 1700 2175 Balance 705 -2130 PT 14.3 SEC (12.0-15.0) 12/21/17 08:40 INR 1.09 (0.83-1.16) 12/21/17 08:40 Holding SR/ST. Tolerant of inc Coreg. Min suppl O2. Excellent autodiuresis. No sig CTOP. CXR -> tiny rt apical PTX. Platelets appear to be rebounding. Physical Exam - Physical Exam General Appearance: alert, no apparent distress Respiratory: lungs clear (grossly), other (blakes x 3 to bulb suction, serosang drainage, nl tidal, no air leak with vigorous cough) Cardiac/Chest: regular rate, rhythm, other (Sternotomy and LLE venotomy CDI. Vwires intact.) Abdomen: non-tender, soft Skin: warm/dry Extremities: other (no visible edema) ICD10 Worksheet Patient Problems: Problems Problem Status Onset CAD (coronary artery disease) Acute S/P aneurysm repair Acute S/P coronary artery bypass graft x 4 Acute Ventricular aneurysm Acute
[2017-12-24] MEDS ORDERED: MAGNESIUM SULF 1 GM/DEXTROSE 100 ML IV ONE (07:52)
[2017-12-24] MEDS: ASPIRIN 81 MG CHEWABLE TAB PO SCH (07:54)
[2017-12-24] MEDS: CARVEDILOL 6.25 MG TAB PO SCH ×2 (07:54→18:17)
[2017-12-24] MEDS: CLOPIDOGREL BISULFATE 75 MG TAB PO SCH (07:54)
[2017-12-24] MEDS ORDERED: traMADol 50 MG TAB PO PRN (07:54)
[2017-12-24] MEDS: CHOLECALCIFEROL VIT D3 2,000 UNITS TAB/CAP PO SCH ×2 (07:55→21:02)
[2017-12-24] MEDS: NICOTINE 14 MG/24 HR PATCH TD SCH (09:45)
[2017-12-24] MEDS: prednisoLONE ACET 1% 5 ML OPHT.BTL RTEYE SCH (11:13)
[2017-12-24] MEDS: BIMATOPROST 0.01% 2.5 ML OPHT.BTL RTEYE SCH (11:14)
[2017-12-24] MEDS: PANTOPRAZOLE SODIUM 40 MG TAB PO SCH (11:14)
[2017-12-24] MEDS: FERROUS SULFATE 325 MG TAB PO SCH (11:14)
[2017-12-24] MEDS: SENNOSIDES/DOCUSATE SODIUM TAB PO SCH ×2 (11:15→21:01)
--- NOTE | 2017-12-24 14:19 | PDINTPN ---
It Technical Specialist Progress Note Assessment/Plan: Assessment: Status post coronary artery bypass grafting secondary to unstable angina. Doing well postoperatively. Sternal/chest surgical pain improved. Hemodynamics fine. Up ambulating. Ischemic cardiomyopathy. Ejection fraction preop was 30%. Status post aneurysmectomy. Bipolar disorder. Patient stable today from a psychiatric standpoint. Back on lithium and mirtazipine, doing well. Anemia. Secondary to surgery/acute blood loss. Hematocrit 34 today. Thrombocytopenia improving. Hit serology pending. History of COPD, ongoing tobacco abuse. Pulmonary status is stable. On a nicotine patch. PTX: Follow Prophylaxis: Subcu heparin on hold, on pantoprazole. Metabolic: No issues identified. Plan: Continue care. Can transfer to PCU. Decrease pain medications. Continue medications for bipolar depression. Increase activity/ambulation as tolerated. Follow laboratory, CXR. If HIT panel negative then restart subcu heparin or enoxaparin. Recheck ejection fraction at some point by cardiac echo. Per Cardiology/cardiovascular surgery. 25 min of critical care time spent directly with the patient. Discussed with nursing, the ICU multi disciplinary Subjective: Feels better today. In good spirits. More active. Walking in the halls with physical therapy using his walker. Less chest pain. Objective: Vital Signs Temp Pulse Resp BP Pulse Ox 36.6 C 101 H 14 103/66 96 12/24/17 12:18 12/24/17 12:18 12/24/17 12:18 12/24/17 12:18 12/24/17 12:18 Laboratory Results 12/24/17 05:10 12/24/17 05:10 12/23/17 12/24/17 12/25/17 05:59 05:59 05:59 Intake Total 2405 45 Output Total 1700 2175 50 Balance 705 -2130 -50 PT 14.3 SEC (12.0-15.0) 12/21/17 08:40 INR 1.09 (0.83-1.16) 12/21/17 08:40 Laboratory Tests 12/24/17 05:10 Calcium 8.9 Magnesium 1.5 L CXR: Chest tubes in place. Small rate apical pneumothorax is improving. No significant infiltrates or congestive heart failure Physical Exam - Physical Exam General Appearance: alert, no apparent distress, thin EENT: normal ENT inspection, other (Nasal cannula at 2 L) Neck: normal inspection (No JVD) Respiratory: lungs clear (Anteriorly), decreased breath sounds (At bases, few nonspecific rales), prolonged expiration, No wheezing Cardiac/Chest: tachycardia (Sinus, approximately 100), systolic murmur, No gallop Abdomen: normal bowel sounds, non-tender, soft Male Genitalia: other (Brady catheter out, using urinal. Good urine output) Skin: normal color, warm/dry Extremities: No pedal edema Neuro/Psych: no motor/sensory deficits, No cognition abnormalities ICD10 Worksheet Patient Problems: Problems Problem Status Onset S/P aneurysm repair Acute Ventricular aneurysm Acute S/P coronary artery bypass graft x 4 Acute CAD (coronary artery disease) Acute
--- NOTE | 2017-12-24 15:41 | ASMTCMCOM ---
CM Note CM Note Notes: Spoke to patient about SNF Rehab, he's in favor of going somewhere in [place]. Sent referrals to [facility] and [facility]. Date Signed: 12/24/2017 03:41 PM Electronically Signed By:Siria Mendoza LCSW
[2017-12-24] MEDS ORDERED: AMIODARONE HCL 150 MG/100 ML BAG (1.5 MG/ML) IV ONE (19:15)
[2017-12-24] MEDS ORDERED: AMIODARONE A.FIB-LOAD DOSE(ORDER 1/3) PREMIX IV ONE (19:30)
[2017-12-24] MEDS ORDERED: AMIODARONE A.FIB-6HR INFSN (ORDER 2/3) PREMIX IV ONE (19:30)
[2017-12-24] MEDS: MIRTAZAPINE 30 MG TAB PO SCH (21:01)
[2017-12-24] MEDS: LITHIUM CARBONATE 300 MG TAB PO SCH (21:01)
[2017-12-25] MEDS ORDERED: AMIODARONE A.FIB-18HR INFSN (ORDER 3/3) IV ONE (01:30)
--- NOTE | 2017-12-25 06:36 | SOAPPROG ---
SOAP Progress Note Assessment/Plan: Assessment: POD#4 Urgent CABGX4 (SANDOVAL-LAD, SVG-D1, SVG-Cx, SVG-PDA), LV aneurysmorrhaphy, AtriClip ligation JOSE M, EVH L leg Unstable angina/severe 3VD/LV aneurysm with ischemic cardiomyopathy (EF 30%) s/ p urgent CABGx4/LV aneurysmorrhaphy - BB/ASA/statin - DAPT for 60 days for additional vein thromboprophylaxis - CT to bulb suction - PT/OT Postop paroxysmal atrial fibrillation - SR restored within 5 min on IV amio. - Uptitration BB as allowed by BP. - High threshold to anticoagulate as JOSE M excluded. Acute blood loss anemia - Stable without the need for BP transfusions Thrombocytopenia - Secondary to CPB, trending higher. Precautionary HIT negative. - Hold ASA/Plavix for platelets <50, hold heparin SQ for platelets <100 Psych issues (depression/bipolar) - [place] and mirtazipine resumed. Corneal issues, right eye - Continue eye drops COPD/Tobacco abuse - Nicotine patch placed Dysphagia - Swallow passed. Diet per TESTING TECH Plan: CTs and Vwire removed. Amio as per protocol with transition to orals tonight. Cont coreg 6.25 mg BID. Inc activity as tolerated. 12/25/17 06:34 Subjective: Feels well. Min incisional discomfort. Excellent appetite. Only concern is missing one of his eye drops and anxious to speak to pharmacy about it. Objective: Vital Signs Temp Pulse Resp BP Pulse Ox 37 C 86 16 95/58 L 100 12/24/17 20:00 12/25/17 04:00 12/25/17 04:00 12/25/17 04:00 12/25/17 04:00 Laboratory Results 12/25/17 05:20 12/24/17 05:10 12/24/17 12/25/17 12/26/17 05:59 05:59 05:59 Intake Total 45 1377 Output Total 2175 1770 Balance -2130 -393 PT 14.3 SEC (12.0-15.0) 12/21/17 08:40 INR 1.09 (0.83-1.16) 12/21/17 08:40 Brief PAF last noc, responsive to amio bolus. Insufficient BP to uptitrate BB further. Almost off O2. Adequate fluid balance. CTOP below removal criteria. Plt rebound apparent. Physical Exam - Physical Exam General Appearance: alert, no apparent distress Respiratory: lungs clear (grossly), other (blakes x 3 to bulb suction, thin serosang drainage; all tubes removed without incident) Cardiac/Chest: regular rate, rhythm, other (Sternotomy and LLE venotomy CDI. Vwires removed without difficulty.) Abdomen: non-tender, soft Skin: warm/dry Extremities: other (no visible edema) ICD10 Worksheet Patient Problems: Problems Problem Status Onset CAD (coronary artery disease) Acute S/P aneurysm repair Acute S/P coronary artery bypass graft x 4 Acute Ventricular aneurysm Acute
[2017-12-25] MEDS: CHOLECALCIFEROL VIT D3 2,000 UNITS TAB/CAP PO SCH ×2 (08:51→21:11)
[2017-12-25] MEDS: CARVEDILOL 6.25 MG TAB PO SCH ×2 (08:51→18:00)
[2017-12-25] MEDS: FERROUS SULFATE 325 MG TAB PO SCH (08:51)
[2017-12-25] MEDS: ASPIRIN 81 MG CHEWABLE TAB PO SCH (08:55)
[2017-12-25] MEDS: PANTOPRAZOLE SODIUM 40 MG TAB PO SCH (08:55)
[2017-12-25] MEDS: CLOPIDOGREL BISULFATE 75 MG TAB PO SCH (08:55)
[2017-12-25] MEDS: SENNOSIDES/DOCUSATE SODIUM TAB PO SCH ×2 (08:55→21:11)
[2017-12-25] MEDS: prednisoLONE ACET 1% 5 ML OPHT.BTL RTEYE SCH (08:57)
[2017-12-25] MEDS: NICOTINE 14 MG/24 HR PATCH TD SCH (09:00)
[2017-12-25] MEDS: BIMATOPROST 0.01% 2.5 ML OPHT.BTL RTEYE SCH (10:05)
[2017-12-25] MEDS: HYDROCODONE/APAP 5/325 TAB PO PRN (13:21)
[2017-12-25] MEDS: BRIMONIDINE 0.1% 5 ML OPHT.BTL RTEYE SCH ×2 (16:29→22:06)
--- NOTE | 2017-12-25 16:51 | ASMTCMCOM ---
CM Note CM Note Notes: [facility] does not have any beds. Still waiting on [place]'s decision. CM will follow. Date Signed: 12/25/2017 04:51 PM Electronically Signed By:Fern Landin LCSW
--- NOTE | 2017-12-25 17:52 | SOAPPROG ---
SOAP Progress Note Assessment/Plan: Assessment: Status post coronary artery bypass grafting secondary to unstable angina. Doing well postoperatively. Sternal/chest surgical pain improved. Hemodynamics fine. Up ambulating without difficulty. Ischemic cardiomyopathy. Ejection fraction preop was 30%. Status post aneurysmectomy. Bipolar disorder. Patient stable today from a psychiatric standpoint. Back on lithium and mirtazipine, doing well. Has an appointment with [facility] at some point later this month. Anemia. Secondary to surgery/acute blood loss. Hematocrit 34 yesterday. Thrombocytopenia continues to improve. Hit serology negative. COPD, ongoing tobacco abuse. Pulmonary status is stable. On a nicotine patch. Has not used inhalers in the past. Has no hammersmith helper in feels he does necessarily not need one. PTX: Follow Prophylaxis: Subcu heparin on hold, on pantoprazole. Metabolic: No issues identified. Plan: Continue care. Continue medications for bipolar depression. Increase activity/ambulation as tolerated. Follow laboratory, CXR. Can start subcu heparin from my standpoint, however he may not need this now as he is quite ambulatory. Per cardiovascular surgery. Recheck ejection fraction at some point by cardiac echo. I would be happy to see the patient in the office if he wishes. However, he lives in [place] and does not have transportation into [place]. A pulmonary physician in [place] may be a better choice if he needs one. However, the patient does not feel he does at this point in time. I will sign off. Please call if I can be of help. Subjective: Doing well, up walking in the halls, denies significant dyspnea on exertion Objective: Vital Signs Temp Pulse Resp BP Pulse Ox 37.3 C 89 18 112/67 90 L 12/25/17 16:00 12/25/17 16:00 12/25/17 16:00 12/25/17 16:00 12/25/17 16:00 Laboratory Results 12/25/17 05:20 12/24/17 05:10 12/24/17 12/25/17 12/26/17 05:59 05:59 05:59 Intake Total 45 1377 533 Output Total 2175 1770 525 Balance -2130 -393 8 PT 14.3 SEC (12.0-15.0) 12/21/17 08:40 INR 1.09 (0.83-1.16) 12/21/17 08:40 CXR: Decreased small apical pneumothorax. No significant infiltrates, congestive heart failure or atelectasis. Physical Exam - Physical Exam General Appearance: alert, no apparent distress, thin EENT: PERRL/EOMI, other (Room air sats 90% at rest) Neck: normal inspection Respiratory: lungs clear (Anteriorly), decreased breath sounds (Bilaterally), rales (Few basilar rales), prolonged expiration, No rhonchi, No wheezing Cardiac/Chest: regular rate, rhythm, systolic murmur Abdomen: normal bowel sounds, non-tender, soft Skin: normal color, warm/dry Extremities: No pedal edema Neuro/Psych: no motor/sensory deficits, No cognition abnormalities ICD10 Worksheet Patient Problems: Problems Problem Status Onset S/P aneurysm repair Acute Ventricular aneurysm Acute S/P coronary artery bypass graft x 4 Acute CAD (coronary artery disease) Acute
[2017-12-25] MEDS ORDERED: BIMATOPROST 0.01% 2.5 ML OPHT.BTL RTEYE SCH (21:00)
[2017-12-25] MEDS: ATORVASTATIN CALCIUM 10 MG TAB PO SCH (21:11)
[2017-12-25] MEDS: AMIODARONE HCL 200 MG TAB PO SCH (21:11)
[2017-12-25] MEDS: LITHIUM CARBONATE 300 MG TAB PO SCH (22:05)
[2017-12-25] MEDS: MIRTAZAPINE 30 MG TAB PO SCH (22:06)
--- NOTE | 2017-12-26 08:16 | SOAPPROG ---
SOAP Progress Note Assessment/Plan: Assessment: POD#5 Urgent CABGX4 (SANDOVAL-LAD, SVG-D1, SVG-Cx, SVG-PDA), LV aneurysmorrhaphy, AtriClip ligation JOSE M, EVH L leg Unstable angina/severe 3VD/LV aneurysm with ischemic cardiomyopathy (EF 30%) s/ p urgent CABGx4/LV aneurysmorrhaphy - BB/ASA/statin - DAPT for 60 days for additional vein thromboprophylaxis - CTs and wires out. - PT/OT Postop paroxysmal atrial fibrillation - SR restored within 5 min on IV amio. - Uptitration BB as allowed by BP. - High threshold to anticoagulate as JOSE M excluded. Acute blood loss anemia - Stable without the need for BP transfusions Thrombocytopenia - Secondary to CPB, trending higher. Precautionary HIT negative. - Hold ASA/Plavix for platelets <50, hold heparin SQ for platelets <100 Psych issues (depression/bipolar) - [place] and mirtazipine resumed. Corneal issues, right eye - Continue eye drops COPD/Tobacco abuse - Nicotine patch placed Dysphagia - Swallow passed. Diet per PLANT OPERATOR Plan: Cont current meds. Dispo - Ok for discharge home. 12/26/17 08:16 Subjective: Feels great. Wants to go home. Believes has enough support to help with ADLs and transport to outpt rehab. Objective: Vital Signs Temp Pulse Resp BP Pulse Ox 37.3 C 100 19 131/77 H 94 12/26/17 07:55 12/26/17 07:55 12/26/17 07:55 12/26/17 07:55 12/26/17 07:55 Laboratory Results 12/26/17 04:45 12/24/17 05:10 12/25/17 12/26/17 12/27/17 05:59 05:59 05:59 Intake Total 1377 1633 Output Total 1770 1075 Balance -393 558 PT 14.3 SEC (12.0-15.0) 12/21/17 08:40 INR 1.09 (0.83-1.16) 12/21/17 08:40 HR and BP stable. Off O2. Adequate fluid balance. Below admit wt. Labs ok. Plts normalizing. Physical Exam - Physical Exam General Appearance: alert, no apparent distress Respiratory: crackles (bases), other (CT sites clean and moist.) Cardiac/Chest: regular rate, rhythm, other (Sternum grossly stable. Sternotomy and LLE venotomy CDI.) Abdomen: non-tender, soft Skin: warm/dry Extremities: other (no visible edema) ICD10 Worksheet Patient Problems: Problems Problem Status Onset CAD (coronary artery disease) Acute S/P aneurysm repair Acute S/P coronary artery bypass graft x 4 Acute Ventricular aneurysm Acute
[2017-12-26] MEDS: CARVEDILOL 6.25 MG TAB PO SCH (09:08)
[2017-12-26] MEDS: ASPIRIN 81 MG CHEWABLE TAB PO SCH (09:09)
[2017-12-26] MEDS: AMIODARONE HCL 200 MG TAB PO SCH (09:09)
[2017-12-26] MEDS: CHOLECALCIFEROL VIT D3 2,000 UNITS TAB/CAP PO SCH (09:10)
[2017-12-26] MEDS: SENNOSIDES/DOCUSATE SODIUM TAB PO SCH (09:11)
[2017-12-26] MEDS: PANTOPRAZOLE SODIUM 40 MG TAB PO SCH (09:11)
[2017-12-26] MEDS: FERROUS SULFATE 325 MG TAB PO SCH (09:11)
[2017-12-26] MEDS: NICOTINE 14 MG/24 HR PATCH TD SCH (09:13)
[2017-12-26] MEDS: CLOPIDOGREL BISULFATE 75 MG TAB PO SCH (09:13)
[2017-12-26] MEDS: prednisoLONE ACET 1% 5 ML OPHT.BTL RTEYE SCH (09:14)
[2017-12-26] MEDS: BRIMONIDINE 0.1% 5 ML OPHT.BTL RTEYE SCH (09:15)
[2017-12-26 11:54] VITALS: BP 118/66; PULSE 98; RESP 20; TEMP 99; O2SAT 90
--- NOTE | 2017-12-26 15:40 | PDDCSUM ---
Discharge Summary Discharge Summary: DATE OF ADMISSION: 12/20/17 DATE OF DISCHARGE: 12/26/17 DISPOSITION: Home, self care PRINCIPAL ADMISSION DIAGNOSIS: Unstable angina PRINCIPAL DISCHARGE DIAGNOSES: 1. Carotid atherosclerosis 2. Progressive coronary artery disease 3. Left ventricular diastolic dysfunction 4. Left ventricular apical aneurysm 5. Ischemic cardiomyopathy 6. Status post coronary artery bypass grafting x 4 7. Status post left ventricular aneurysmorrhaphy 8. Status post prophylactic clip ligation of the left atrial appendage 9. Acute expected blood loss anemia 10. Postoperative paroxysmal atrial fibrillation HISTORY OF PRESENT ILLNESS: 67 yo male with known CAD, recurrent anginal symptoms, and new inferior wall perfusion defect on nuclear stress test admitted for elective cardiac catheterization. Found to have new RCA branch vessel disease with an occluded LAD stent, moderate instent restenosis of LCX, an LVEDP of 24 and LVEF of 30%. Referred for surgical revascularization. Preop imaging negative for prohibitive neurologic risk. PERTINENT PAST MEDICAL HISTORY: CAD s/p remote AMI/PCI LAD and PCI LCX, ISCM with LVEF 35-40%, HTN, dyslipidemia , visually impaired s/p rt corneal transplant, suspected COPD (1/2 ppd x 50 yrs , down to a few cigs daily), bipolar disorder MEDICATIONS ON ADMISSION: Ferrous sulfate 325 mg daily, Carvedilol 12.5 mg BID, ASA 325 mg BID, Simvastatin 20 mg HS, Nitrostat 0.4 mg SL q 5min prn, Alphagan 0.1% one drop rt eye BID, Lumigan 0.01% one drop rt eye daily, Prednisolone 1% one drop rt eye daily, Remeron 30 mg HS, Vit D3 2,000 units BID, [place] carbonate 300 mg HS, Ramelteon 8 mg HS prn ALLERGIES/SENSITIVITIES: Codeine causing itching CONSULTANTS: CV surgery ([place]), Pulmonology/critical care ([place]) PROCEDURES/IMAGIN/2 ([place]): Left heart catheterization with selective coronary angiography and left ventriculogram. Access right radial artery. 12/20 Carotid Ultrasound: mild atherosclerotic disease bilateral carotid bulbs 3/4 ([place]): Urgent coronary artery bypass grafting x 4 (SANDOVAL-LAD, SV-D1, SV-LCX , SV-PDA). Takedown left internal mammary artery. Endoscopic vein harvest LLE. Left ventricular aneurysmorrhaphy. Prophylactic AtriClip ligation left atrial appendage. ABBREVIATED HOSPITAL COURSE BY ACTIVE PROBLEM LIST: 1. Sx progressive CAD with ISR - s/p urgent CABG. Stable early postop course. Secondary prevention with baby ASA, BB, and statin. Adjunctive Plavix x 2mo for vein thromboprophylaxis. 2. LV aneurysm with ischemic cardiomyopathy (EF 30%) - Aneurysm plicated. No postop vasoactive support or significant volume overload. Staggered reintro of heart failure regimen as tolerated. Insufficient BP for ARB. 3. Postop paroxysmal atrial fibrillation - Prompt conversion to SR on amio. No recurrence. Adjunctive rate control w BB, uptitrated as tolerated. 4. Acute expected blood loss anemia with thrombocytopenia - Stable. No transfusions required. Precautionary HIT negative. Platelet rebound noted. 5. COPD/Tobacco abuse - Willing to quit. Cessation aids declined. DISCHARGE CLINICAL INFORMATION: Sternum grossly stable. Sternotomy CDI, sutured, +Dermabond. HR 80s-90s. SBP 110s. SpO2 94% RA. Wt 5.2 kg below admission at 68.7 kilos. Hgb 10.7, HCT 31.7, Plt 122, Na 139, K 4.1, Cr 0.7 DISCHARGE MEDICATIONS: As on admission with the following adjustments: Decrease Coreg to 6.125 mg BID Decrease ASA to 81 mg daily while on Plavix NEW prescriptions: 1. Plavix 75 mg daily x 2 months 2. Amiodarone 200 mg daily x 2 weeks 3. [place] 5/325 one-half to two tabs q 6-8 hrs prn incisional discomfort FOLLOW UP APPOINTMENTS: 1. CV surgery: with Dr Devlin at [facility] on 01/07 at 9:30 am. 2. Cardiology: with Dr Boone at [facility] within 4-6 weeks. Appointment to be established during surgical visit. FOLLOW UP TESTING: CXR prior to surgical appointment.
--- NOTE | 2017-12-26 15:46 | ASMTCMCOM ---
CM Note CM Note Notes: Patient states he does not want to go for SNF rehab but will follow through with outpatient cardiac rehab. Patient states he would really like to go home today. He has a friend Celestino who he can stay with for 5 days when he first is d/c'ed. Celestino only lives 2 blocks from him and states he can check on patient once per day after he does return home. Celestino states patient is welcome to stay with him during his recovery and he can help him get to his cardiac rehab appointments. Celestino will pick him up today between 4:30 and 5:[address] Devlin was informed and he has approved the plan. Patient's nurse was informed so she can go over his d/c instructions. Patient's cousin, Adriana Morales was informed he would be d/c'ed today to Celestino's residence. She works for [employer] and will check on him as well.No further d/c needs. Date Signed: 12/26/2017 03:46 PM Electronically Signed By:Fern Landin LCSW
== END 2017-12-26 16:52 | disposition home or self-care (01) | DRG 234 ==
LOC: FCATH 10:54 → F2W 13:39 → OBSVTOIN 12-21 09:33 → F2N 12-21 15:35
PROVIDERS: ADMIT Internal Medicine Interventional Cardiology; ATTEND Internal Medicine Interventional Cardiology
PROC: 4A023N7 Measurement of Cardiac Sampling and Pressure, Left Heart, Percutaneous Approach (ICD-10-PCS; 2017-12-20)
PROC: B2111ZZ Fluoroscopy of Multiple Coronary Arteries using Low Osmolar Contrast (ICD-10-PCS; 2017-12-20)
PROC: B2151ZZ Fluoroscopy of Left Heart using Low Osmolar Contrast (ICD-10-PCS; 2017-12-20)
PROC: 021209W Bypass Coronary Artery, Three Arteries from Aorta with Autologous Venous Tissue, Open Approach (ICD-10-PCS; principal; 2017-12-21 12:00)
PROC: 02L70CK Occlusion of Left Atrial Appendage with Extraluminal Device, Open Approach (ICD-10-PCS; principal; 2017-12-21 12:00)
PROC: 5A1221Z Performance of Cardiac Output, Continuous (ICD-10-PCS; principal; 2017-12-21 12:00)
PROC: 06BQ4ZZ Excision of Left Saphenous Vein, Percutaneous Endoscopic Approach (ICD-10-PCS; principal; 2017-12-21 12:00)
PROC: 02100Z9 Bypass Coronary Artery, One Artery from Left Internal Mammary, Open Approach (ICD-10-PCS; principal; 2017-12-21 12:00)
DX: I25.110 Atherosclerotic heart disease of native coronary artery with unstable angina pectoris (principal); D62 Acute posthemorrhagic anemia; I48.0 Paroxysmal atrial fibrillation; I25.5 Ischemic cardiomyopathy; I65.23 Occlusion and stenosis of bilateral carotid arteries; I72.9 Aneurysm of unspecified site; I10 Essential (primary) hypertension; E78.00 Pure hypercholesterolemia, unspecified; J44.9 Chronic obstructive pulmonary disease, unspecified; F31.9 Bipolar disorder, unspecified; D69.6 Thrombocytopenia, unspecified; Z72.0 Tobacco use
CPT/HCPCS: 82947-QW; 86022-90; 92526-GN; 92610-GN; 97116-GP; 97162-GP; 97166-GO; 97530-GO; 97530-GP; 97535-GO; C1768; C1769; G0378; G8987-GO-CL; G8988-GO-CH; G8988-GO-CJ; G8989-GO-CJ; G8996-GN-CK; G8997-GN-CH; J0153; J0171; J0282; J0690; J1100; J1265; J1644; J1815; J2001; J2150; J2250; J2260; J2270; J2370; J2405; J2440; J2704; J2720; J2765; J2930; J3010; J3475; J3480; J7060; P9041; Q9967

== ENCOUNTER 2018-02-03 16:12 | Emergency (ER) | payer OTHER, MEDICAID ==
--- NOTE | 2018-02-03 16:18 | EDPHY ---
H & P Time Seen by Provider: 02/03/18 16:15 HPI/ROS: CHIEF COMPLAINT: Shortness of breath HISTORY OF PRESENT ILLNESS: Arrives by EMS, says he has been short of breath since he had surgery in December for coronary bypass grafting. Says he can walk 2 blocks before he gets short of breath. Symptoms are relatively stable, he does not have a persistent cough, he does not have chest pain. Not exertional. Had a little bit of cough this morning, no sputum or hemoptysis. His other problem today is a eye problem. Describes pain in his right eye at 3: 00 a.m. today associated with a right side mild neck pain, eye redness and decreased vision. Right now he can only see light out of his right eye. He has a history of glaucoma and cataract surgery. REVIEW OF SYSTEMS: Eye: HPI ENT: no sore throat Cardiac: no chest pain or syncope Pulmonary: Symptoms mild, unchanged as in HPI Abdomen: no vomiting, diarrhea, abdominal pain Musculoskeletal: no back pain Skin: no rash Neuro: denies headache to me Constitutional: no fever : no urinary symptoms, no dysuria or hematuria A comprehensive 10 point review of systems is otherwise negative aside from elements mentioned in the history of present illness. PAST MEDICAL HISTORY: Admitted 12/20/2017 through 12/26/2017 in H&P by Dr. Saldana and discharge summary also reviewed personally. Includes coronary disease with bypass grafting x4, postoperative AFib, LV aneurysm, bipolar and hypercholesterolemia. Glaucoma. Social history: Lives independently, smoker General Appearance: Alert and conversant, cooperative. Eyes: Right pupil is not reactive, sclera is red, left eye reactive and vision preserved. Vision to light/dark only in right eye. ENT, Mouth: Normal mucous membranes. Respiratory: Normal respiratory effort, breath sounds equal, lungs are clear to auscultation. No rhonchi or rales. Full sentences, no extra work of breathing. Cardiovascular: Regular rate and rhythm. Gastrointestinal: Abdomen is soft and non tender. Neurological: Alert, face symmetric, normal motor and sensory in extremities. Right eye as above. Fluent speech. Not ataxic. Skin: Warm and dry, no rashes. Musculoskeletal: No peripheral edema. No calf tenderness. Psychiatric: Not agitated. Emergency Department course/MDM: Right eye is red with nonreactive pupil, electronic tonometer pressure measured personally is between 20 and 26. Plan for labs and chest x-ray as well as ophthalmology consult. 173: D-dimer elevated and CT angio discussed and consented, Dr. Dinh with the patient. 175: Per Dr. Dinh has choroidal hemorrhage, no ED further workup or treatment indicated for this problem. 1912: CT reviewed with , negative chest. He is able to speak in full sentences, negative workup here so far. I think it is reasonable to discharge him and have him follow up with Cardiology. He is not hypoxemic here and does not have any respiratory distress. I think acute coronary syndrome would be unlikely. His BNP was noted to be elevated, but he has not have pulmonary edema on his chest CT. No peripheral edema. His white blood cell count was noted to be slightly elevated at 15,000 thousand but he does not have pneumonia on CT, or eye infection or other source for acute bacterial infection. Smoking Status: Current every day smoker Constitutional: Initial Vital Signs Temperature (C) 37.5 C 02/03/18 16:19 Heart Rate 76 02/03/18 16:19 Respiratory Rate 16 02/03/18 16:19 Blood Pressure 110/68 02/03/18 16:19 O2 Sat (%) 97 02/03/18 16:19 O2 Delivery Mode Room Air Allergies/Adverse Reactions: codeine Allergy (Verified 12/20/17 11:38) Itching Home Medications: Medication Instructions Recorded Bimatoprost 0.01% [Lumigan 0.01% 1 drops RTEYE DAILY 12/20/17 (*)] Brimonidine 0.1% [ALPHAGAN P 0.1% 1 drops RTEYE BID 12/20/17 (*)] Cholecalciferol Vit D3 [Vitamin D3 2,000 units PO BID 12/20/17 2000 units tab (OTC)] Ferrous Sulfate [Ferrous Sulf 325 325 mg PO DAILY 12/20/17 MG (*)] [place] Carbonate [[place] 300 mg PO HS 12/20/17 Carbonate Tab 300 mg (*)] Mirtazapine [Remeron] 30 mg PO HS 12/20/17 Nitroglycerin [Nitrostat 0.4 mg 0.4 mg PO DAILY PRN 12/20/17 (*)] Ramelteon [Rozerem] 8 mg PO HS PRN 12/20/17 Simvastatin [Zocor] 20 mg PO HS 12/20/17 prednisoLONE ACET 1% [Pred Forte 1 drops RTEYE DAILY 12/20/17 1% (*)] Acetaminophen [Tylenol 325mg (*)] 325 - 650 mg PO Q4HRS PRN tab 12/26/17 Amiodarone HCl [[place]acer[place] (*)] 200 mg PO DAILY #15 tab 12/26/17 Aspirin [Aspirin 81mg (*)] 81 mg PO DAILY tab.chew 12/26/17 Carvedilol [Coreg (*)] 6.25 mg PO BIDMEAL tab 12/26/17 Clopidogrel Bisulfate [Plavix (*)] 75 mg PO DAILY #30 tab 12/26/17 Hydrocodone/APAP 5/325 [[place] 1 tab PO Q6-8PRN PRN #30 tab 12/26/17 5/325 (*)] Medical Decision Making - Diagnostics EKG Interpretation: 12-lead EKG interpreted by me; official reading is in trace master. My interpretation is sinus rhythm rate 76, biphasic T-waves in the anterior leads. Imaging: Discussed imaging studies w/ stave cutting supervisor Radiologist Differential Diagnosis: Differential diagnosis considered for shortness of breath including but not limited to pulmonary infectious process, COPD, asthma, pulmonary embolus and congestive heart failure. Consult/Admit Bed Type: [place] [id number] - Data Points Laboratory Results: Laboratory Results 02/03/18 16:22 02/03/18 16:22 Medications Given: Discontinued Medications Fluorescein Sodium/Benoxinate HCl (Flurox) 2 drops EACHEYE EDNOW ONE Stop: 02/03/18 18:01 Last Admin: 02/03/18 17:54 Dose: 2 drops Departure - Departure Disposition: Home, Routine, Self-Care Clinical Impression: Choroidal hemorrhage of right eye Dyspnea Qualifiers: Dyspnea type: unspecified Qualified Code(s): R06.00 - Dyspnea, unspecified Condition: Good Instructions: Dyspnea (ED) Referrals: Corina Dinh MD [Medical Doctor] - 5-7 days, call for appt. (followup eye doctor in 1-2 weeks) Collin Boone MD [Medical Doctor] - As per Instructions (Please follow-up this week with Cardiology in the office.)
--- NOTE | 2018-02-03 16:28 | CPEKG ---
Heart Rate: 76 RR Interval: 789 P-R Interval: 164 QRSD Interval: 108 QT Interval: 404 QTC Interval: 455 P [place]: 71 QRS [place]: 36 T Wave [place]: 101 EKG Severity - ABNORMAL ECG - EKG Impression: SINUS RHYTHM EKG Impression: PROBABLE LEFT ATRIAL ABNORMALITY EKG Impression: ANTEROLATERAL INFARCT, RECENT Electronically Signed By: Tai Martinez 03-Feb-2018 16:43:19
[2018-02-03 17:08] LABS: PLATELET COUNT 316 10^3/uL (150-400)
[2018-02-03] MEDS ORDERED: IOPAMIDOL (ISOVUE 370) 100 ML BTL IV ONE (17:53)
[2018-02-03] MEDS ORDERED: FLUORESCEIN SOD/BENOXINATE HCL 20 DROPS/ML OPHT.BTL EACHEYE ONE (18:00)
[2018-02-03 20:16] VITALS: BP 117/76
--- NOTE | 2018-02-03 21:53 | GCON ---
[f rep st] CONSULTATION EMERGENCY DEPARTMENT CONSULTATION DATE OF CONSULTATION: 02/03/2018 CHIEF COMPLAINT: Acute loss of vision, right eye. HISTORY OF PRESENT ILLNESS: The patient was admitted to the emergency department with shortness of breath. He reports also that this morning at 3:00 a.m., he woke up with neck pain and sudden severe onset of pain worse than he had ever had before in the right eye, like something popped. Since then, he has only been able to see light barely out of the right eye. He reports that the pain lasted a few minutes and then was able to go back to sleep. The eye is grader tender, but not nearly as painful as it was at its onset. The vision has not improved. PAST MEDICAL HISTORY: Significant for recent bypass grafting 1 month ago with postoperative atrial fibrillation. He has coronary artery disease. He has history of bipolar disorder and hypercholesterolemia. 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 Baseline visual acuity 20/200 to 20/400 with correction right eye SOCIAL HISTORY: He is an everyday smoker. MEDICATIONS: Alphagan right eye b.i.d., Lumigan right eye daily, lithium p.o., Remeron p.o., Zocor p.o., Pred Forte 1% right eye daily, amiodarone p.o., aspirin p.o., carvedilol p.o., clopidogrel p.o.. ALLERGIES: Codeine. REVIEW OF SYSTEMS: In addition to his eye problem, he has right hip pain, headache, and shortness of breath. All other review of systems normal. EXAM: The patient is alert and oriented and not in acute distress. He is wearing his aphakic hyperopic correction currently. His visual acuity is light perception, right eye, and 20/25, left eye. Intraocular pressure checked by emergency department is 20 in the right eye. Slit lamp examination: Lids and lashes: Blepharitis with lid erythema and packed meibomian glands, right eye. Normal left eye. Conjunctivae: 2+ injection, right eye, normal left eye. Cornea: Clear central cornea graft. Staining epithelial defect on the temporal aspect of the graft without a leak. There is iris adherent to the cornea in the interior aspect of the graft-host interface. It is [place] negative. The anterior chamber is shallow temporally, but deep nasally and quiet. 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 Dilated exam in the right eye shows a massive hemorrhagic choroidal detachment right up behind the iris in the right eye with no other view possible due to the choroidal hemorrhage. ASSESSMENT: Acute choroidal hemorrhage in the right eye due to a combination of blepharitis, likely causing to eye rubbing and dehiscence of his temporal aspect of the penetrating keratoplasty graft, which subsequently led to a massive choroidal hemorrhage, and then plugging of the corneal wound. This is exacerbated by his current Plavix blood thinner and his frequent coughing and vomiting recently. PLAN: Advise not using the Alphagan and Lumigan now in the right eye, but can continue the Pred Forte once a day in the right eye. Advise caution with no straining or pushing on the right globe. Advise a followup with ophthalmology as an outpatient for possible corneal suturing and drainage of choroidal hemorrhage. Recommend topical antibiotic like gatifloxacin QID in the right eye. /[id number]/MODL MTDD
== END 2018-02-03 20:15 | disposition home or self-care (01) ==
LOC: EDUNIT#
DX: H31.301 Unspecified choroidal hemorrhage, right eye (principal); R06.00 Dyspnea, unspecified; I25.10 Atherosclerotic heart disease of native coronary artery without angina pectoris; F17.200 Nicotine dependence, unspecified, uncomplicated; Z79.82 Long term (current) use of aspirin
CPT/HCPCS: 71046; 71275; 93005; 99285; Q9967